=== PATIENT | female | born 1980 | race Caucasian/White ===

== ENCOUNTER 2018-11-02 02:18 | Emergency (ER) | payer OTHER ==
[~2018-11-02] VITALS: Ht 170.2 cm; Wt 35.8 kg
--- OUTSIDE RECORDS SUMMARY | 2018-11-02 02:20 | XMS REPORT ---
Author Author [facility] Address Unknown Phone Unavailable Care Team Providers Care Photoengraving Helper Name Role Phone Unavailable Unavailable Payers Payer Name Policy Type Policy Number Effective Date Expiration Date Problems This patient has no known problems. Allergies, Adverse Reactions, Alerts Allergy Name Allergy Type Status Severity Reaction(s) Onset Date Inactive Date Treating Clinician Comments No Known Allergies DA Active U 2018-02-04 00:00:00 Penicillins DA Active U 2017-10-03 00:00:00 Medications This patient has no known medications.
--- OUTSIDE RECORDS SUMMARY | 2018-11-02 02:20 | XMS REPORT | Summary of Care ---
Author Author Shaji Sandra R.N. Unknown Address [address] [facility] [place]. [address] Phone Unavailable Care Team Providers Care Network Cabler Name Role Phone EVELIO BONILLA N.P. Unavailable Unavailable FRANKLYN ROD SD, JOYCELYN Monge Unavailable Unavailable Shaji Sandra R.N. Unavailable Unavailable BANG BARRERA SD, DURGA Monge Unavailable Unavailable FRANKLYN Berger, JOYCELYN Unavailable Unavailable JACKIE ROD, ELAINE Claudio Unavailable Unavailable CHAD MET[employer] FURNITURE ASSEMBLER, EVELIO Unavailable Unavailable Unavailable Unavailable Functional Status Name Dates Details Functional status health issues are not documented Status: Name Dates Details Cognitive status health issues are not documented Status: Problems Name Dates Details Acne (706.1, L70.9) Status: Active Abnormal electrocardiogram (794.31, R94.31) Status: Active Tachycardia (785.0, R00.0) Status: Active Establishing care with new doctor, encounter for (V65.8, Z76.89) Status: Active Skin lesion (709.9, L98.9) Status: Active Migraine without aura, intractable (346.11, G43.019) Status: Active Acute pain of right shoulder (719.41, M25.511) Status: Active Numbness and tingling of right arm (782.0, R20.0) Status: Active Limited range of motion (ROM) of shoulder (719.51, M25.619) Status: Active Flu vaccine need (V04.81, Z23) Status: Active Syncope and collapse (780.2, R55) Status: Active Hospital discharge follow-up (V67.59, Z09) Status: Active Generalized anxiety disorder (300.02, F41.1) Status: Active Weight gain, abnormal (783.1, R63.5) Status: Active Mixed hyperlipidemia (272.2, E78.2) Status: Active BMI 30.0-30.9,adult (V85.30, Z68.30) Status: Active Medications Name Dates Details SUMAtriptan 20 MG/ACT Nasal Solution USE 1 SPRAY INTO ONE NOSTRIL NEEDED FOR MIGRAINE RELIEF, MAY REPEAT ONCE AFTER 2 HOURS. MAX - 40MG/DAY. Quantity: 1 CHAD N.P., EVELIO Active Multivitamins CAPS TAKE 1 CAPSULE DAILY. * Refills: 0 R.N. Active Hair/Skin/Nails Oral Tablet * Refills: 0 R.N. Active Escitalopram Oxalate 20 MG Oral Tablet TAKE 1 TABLET BY MOUTH EVERY DAY * Quantity: 90 Refills: 1 BONILLA N.P., EVELIO * Start : 02-Jun-2017 Active Allergies and Adverse Reactions Name Dates Details Penicillins (Allergy) Status: Active Past Medical History Name Dates Details History of Migraine without status migrainosus, not intractable (346.90, G43.909) Status: Resolved Procedures Procedure Dates Details History of Hysterectomy Completed History of Ovarian cystectomy Completed Immunization Name Dates Details Tdap on: Feb-2013 Fluzone Quadrivalent 0.5 ML Intramuscular Suspension Lot #: [id number] on: 10-Nov-2017 Family History Name Dates Details Family history of hypertension (V17.49, Z82.49) Status: Active Name Dates Details Family history of sleep apnea (V19.8, Z82.0) Status: Active Family history of hyperlipidemia (V18.19, Z83.438) Status: Active Family history of migraine headaches (V17.2, Z82.0) Status: Active Social History Name Dates Details - Status: Name Dates Details Unknown if ever smoked Current every day smoker Vital Signs Date Test Result Details [id number] Weight 191.375 lb Status: Body Mass Index Calculated 30.89 kg/m2 Status: Body Surface Area Calculated 1.96 m2 Status: Results Date Description Value Details Results not documented Plan of Care Name Dates Details Planned Observations Planned Goals not documented Instructions Name Dates Details Instructions not documented Encounters Appointment; EVELIO BONILLA NP Encounter Diagnosis: Problem not documented On: 02-Jun-2017 13:30 Appointment; EVELIO BONILLA NP Encounter Diagnosis: Problem not documented On: 16-Jun-2017 14:00 Appointment; EVELIO BONILLA NP Encounter Diagnosis: Problem not documented On: 06-Sep-2017 14:00 Appointment; EVELIO BONILLA NP Encounter Diagnosis: Problem not documented On: 10-Nov-2017 9:30 Appointment; EVELIO BONILLA NP Encounter Diagnosis: Problem not documented On: 06-Feb-2018 8:30 Appointment; EVELIO BONILLA NP Encounter Diagnosis: Problem not documented On: 07-Sep-2018 8:00
[2018-11-02] MEDS ORDERED: KETOROLAC TROMETHAMINE 60 MG/2 ML VIAL ONE (03:16)
[2018-11-02] MEDS ORDERED: NEOMYCIN/POLYMYX/BACITR OINT 0.9 GM PKT ONE (03:16)
--- NOTE | 2018-11-02 03:19 | Diagnostic Imaging Report ---
X-ray right ankle 3 views, x-ray left ankle 3 views HISTORY: Pain COMPARISON: None available. FINDINGS: Bones: No acute displaced fracture. Osseous alignment is within normal limits. Joints: The joint spaces are well-maintained. Soft tissues: The soft tissues appear unremarkable. IMPRESSION: No acute radiographic abnormality. Signed by: Carlos Guzman DO on 11/02/2018 3:15 AM
--- NOTE | 2018-11-02 03:25 | Diagnostic Imaging Report ---
X-ray right knee 3 views HISTORY: Pain. COMPARISON: None available. FINDINGS: Bones: No acute displaced fracture. Osseous alignment is within normal limits. Joints: The joint spaces are well-maintained. Soft tissues: The soft tissues appear unremarkable. IMPRESSION: No acute radiographic abnormality. Signed by: Carlos Guzman DO on 11/02/2018 3:22 AM
[2018-11-02] MEDS ORDERED: KETOROLAC TROMETHAMINE 60 MG/2 ML VIAL IM ONE (03:45)
[2018-11-02] MEDS ORDERED: NEOMYCIN/POLYMYX/BACITR OINT 0.9 GM PKT TOP ONE (03:45)
== END 2018-11-02 03:52 | disposition home or self-care (01) ==
LOC: FSED 02:18
DX: S80.01XA Contusion of right knee, initial encounter (principal); S80.211A Abrasion, right knee, initial encounter; S93.491A Sprain of other ligament of right ankle, initial encounter; W18.30XA Fall on same level, unspecified, initial encounter; Y92.008 Other place in unspecified non-institutional (private) residence as the place of occurrence of the external cause
CPT/HCPCS: 73562; 73610 ×2; 99283; J1885